=== PATIENT | female | born 1945 ===

== ENCOUNTER → 2021-09-10 | Emergency (ER) | payer OTHER ==
[~2021-09-10] VITALS: Ht 157.5 cm; Wt 65.8 kg
[2021-09-10 12:25] VITALS: BP 151/87
== END | disposition left against medical advice (07) ==
LOC: ER 12:23
DX: S00.462A Insect bite (nonvenomous) of left ear, initial encounter (principal); Z53.21 Procedure and treatment not carried out due to patient leaving prior to being seen by health care provider; W57.XXXA Bitten or stung by nonvenomous insect and other nonvenomous arthropods, initial encounter; Y93.89 Activity, other specified; Y92.89 Other specified places as the place of occurrence of the external cause; Y99.8 Other external cause status